=== PATIENT | female | born 1935 | race American Indian/Alaskan Native ===

== ENCOUNTER 2018-01-25 13:32 | Inpatient (IN) | payer MEDICARE, OTHER ==
[2018-01-25] MEDS ORDERED: Metoprolol 1 mg/ml Inj IVP STA (13:58)
[2018-01-25 14:00] LABS: BASO # 0.06 K/mm3 (0.0-2.0); BASO % 0.5 % (0.0-3.0); EOS # 0.3 (0.0-0.7); EOS % 2.2 % (1.5-5.0); GRAN # 1.27 (1.4-6.5); GRAN % 9.6 % (50.0-68.0); HEMOGLOBIN 10.5 g/dL (12.0-16.0); LYMPH # 10.3 (1.2-3.4); LYMPH % 79.2 % (22.0-35.0); MEAN CELL VOLUME 81.8 fl (80.0-105.0); MEAN CORPUSCULAR HEMOGLOBIN 28.1 pg (25.0-35.0); MEAN CORPUSCULAR HGB CONC 34.3 g/dl (31.0-37.0); MONO # 1.1 (0.1-0.6); MONO % 8.5 % (1.0-6.0); PLATELET COUNT 267 10^3/uL (120.0-450.0); RBC 3.74 10^6/uL (3.5-6.1); RED CELL DISTRIBUTION WIDTH 17.7 % (11.5-14.5)
--- NOTE | 2018-01-25 14:27 | RAD ---
Date of service: 01/25/2018 HISTORY: SVT COMPARISON: No prior. FINDINGS: LUNGS: No active pulmonary disease. PLEURA: No significant pleural effusion identified, no pneumothorax apparent. CARDIOVASCULAR: No aortic atherosclerotic calcification present. Normal cardiac size. Aortic tortuosity OSSEOUS STRUCTURES: No significant abnormalities. VISUALIZED UPPER ABDOMEN: Normal. OTHER FINDINGS: None. IMPRESSION: No active disease.
[2018-01-25 14:30] LABS: ATYPICAL LYMPHOCYTE 3 % (0.0-0.0); EOSINOPHIL 2 % (0.0-3.0); LYMPHOCYTE 80 % (22.0-35.0); MONOCYTE 5 % (1.0-6.0); NEUTROPHIL 10 % (50.0-70.0); NUCLEATED RED BLOOD CELL 3 %
[2018-01-25 14:32] LABS: ANISOCYTOSIS 1+; HYPOCHROMIA 2+; PLATELET ESTIMATE NORMAL (NORMAL); POIKILOCYTOSIS 1+; TARGET CELLS 1+
[2018-01-25 14:33] LABS: ALB/GLOB RATIO 0.7 (1.1-1.8); ALBUMIN 2.9 g/dL (3.0-4.8)
--- NOTE | 2018-01-25 14:34 | ED PDOC ---
Arrival/HPI - General Chief Complaint: Palpitations Historian: Patient - History of Present Illness Narrative History of Present Illness (Text): 01/25/18 13:55 82 year old female, with past medical history of hypertension and osteomyelitis, presents to the Emergency department for evaluation of SVT since prior to arrival. Patient informs visiting her PMD this morning, where she was noted to be in acute SVT and was subsequently referred to the ED for medical evaluation. Patient states she has been experiencing chest fluttering and intermittent shortness of breath since past week, but denies any chest pain. Patient reports noncompliance with her blood pressure medications as she was told that the medication will give her adverse effect of a slow heart rate. Patient currently denies any other associated somatic complaints including shortness of breath. Patient denies any fevers, chills, headache, dizziness, chest pain, shortness of breath, cough, abdominal pain, nausea, vomiting, diarrhea, back pain, neck pain, or any other complaints. Upon arrival to the ED, patient initially had a heart rate of 176 bpm, which was lowered to 120 bpm with 6mg IV adenosine. Patient subsequently informed improved symptoms. Time/Duration: Prior to Arrival Symptom Onset: Gradual Symptom Course: Improving Activities at Onset: Light Context: Other (Sent by PMD) Past Medical History - Provider Review Nursing Documentation Reviewed: Yes - Infectious Disease Hx of Infectious Diseases: None - Cardiac Hx Cardiac Disorders: No - Pulmonary Hx Respiratory Disorders: No - Neurological Hx Neurological Disorder: No - HEENT Hx HEENT Disorder: Yes Hx Cataracts: Yes (BILAT.) - Renal Hx Renal Disorder: No - Endocrine/Metabolic Hx Endocrine Disorders: No - Hematological/Oncological Hx Blood Disorders: Yes Hx Blood Transfusions: Yes Hx Blood Transfusion Reaction: No Hx Hepatitis C: Yes (PT. NOT SURE-BELIEVES AFTER BLOOD TRANSFUSION) - Integumentary Hx Dermatological Disorder: Yes Other/Comment: 01/29/16-HX: RASH ON LEFT ARM-"FROM TOO MUCH CITRUS"-PREDNISONE GIVEN-RASH HEALED - Musculoskeletal/Rheumatological Hx Musculoskeletal Disorders: Yes Hx Arthritis: Yes - Gastrointestinal Hx Gastrointestinal Disorders: Yes - Genitourinary/Gynecological Hx Genitourinary Disorders: Yes Hx Hematuria: Yes - Psychiatric Hx Psychophysiologic Disorder: No Hx Substance Use: No - Surgical History Hx Cataract Extraction: Yes (BILAT.) Other/Comment: HX: STOMACH ULCER-SURGERY DONE - Anesthesia Hx Anesthesia: Yes Hx Anesthesia Reactions: No Hx Malignant Hyperthermia: No Family/Social History - Physician Review Nursing Documentation Reviewed: Yes Family/Social History: Unknown Family HX Smoking Status: Never Smoked Hx Alcohol Use: No Hx Substance Use: No Allergies/Home Meds Allergies/Adverse Reactions: Allergies aspirin Allergy (Intermediate, Verified 01/29/16 11:08) DIARRHEA Review of Systems - Physician Review All systems were reviewed & negative as marked: Yes - Review of Systems Constitutional: absent: Fevers Respiratory: absent: SOB, Cough Cardiovascular: Other (SVT). absent: Chest Pain Gastrointestinal: absent: Abdominal Pain, Diarrhea, Nausea, Vomiting Genitourinary Female: absent: Dysuria, Urine Output Changes, Other Musculoskeletal: absent: Back Pain Neurological: absent: Headache, Dizziness Physical Exam Vital Signs Reviewed: Yes Vital Signs Pulse Pulse Resp BP Pulse Ox 01/25/18 14:07 113 H 170/127 H 01/25/18 13:51 170 H 01/25/18 13:43 179 H 29 H 149/113 H 99 Temperature: Afebrile Blood Pressure: Hypertensive Pulse: Tachycardic Respiratory Rate: Tachypneic Appearance: Positive for: Well-Appearing, Non-Toxic, Comfortable Pain Distress: None Mental Status: Positive for: Alert and Oriented X 3 - Systems Exam Head: Present: Atraumatic, Normocephalic Pupils: Present: PERRL Extroacular Muscles: Present: EOMI Conjunctiva: Present: Normal Neck: Present: Normal Range of Motion. No: JVD Respiratory/Chest: Present: Clear to Auscultation, Good Air Exchange. No: Respiratory Distress, Accessory Muscle Use Cardiovascular: Present: Regular Rate and Rhythm, Normal S1, S2. No: Murmurs Abdomen: No: Tenderness, Distention, Peritoneal Signs Back: Present: Normal Inspection Upper Extremity: Present: Normal Inspection. No: Cyanosis, Edema Lower Extremity: Present: Normal Inspection. No: Edema Neurological: Present: GCS=15, CN II-XII Intact, Speech Normal Skin: Present: Warm, Dry, Normal Color. No: Rashes Psychiatric: Present: Alert, Oriented x 3, Normal Insight, Normal Concentration Medical Decision Making ED Course and Treatment: 01/25/18 13:55 Impression: 82 year old female presents to the Emergency department for evaluation of SVT. Differential Diagnosis included but are not limited to: SVT Plan: -- EKG -- Labs -- Chest X-ray -- Adenosine -- Metoprolol -- Urinalysis -- Reassess and disposition -- Admit to Telemetry Prior Visits: Notes and results from previous visits were reviewed. Progress Notes: 01/25/18 13:55 EKG: Ordered, reviewed, and independently interpreted the EKG, shows SVT at 176bpm. 01/25/18 15:01 Upon reassessment, patient informs improved symptoms with heart rate of 84bpm, NSR. Will contact Dr. Daugherty for patient admission. 01/25/18 15:[address] Daugherty, who is aware and agrees with ED management plan, accepts patient under his service. Requests Dr. Tyler on consult for cardiology. 01/25/18 15:08 Chest X-ray reviewed by radiologist, shows no active disease. 01/25/18 15:[address] Tyler, who is aware and will evaluate patient at bedside. - Lab Interpretations Lab Results: 01/25/18 13:44 Lab Results 01/25/18 13:44: WBC 13.0 H, RBC 3.74, Hgb 10.5 L, Hct 30.6 L, MCV 81.8, MCH 28.1, MCHC 34.3, RDW 17.7 H, Plt Count 267, Gran % 9.6 L, Lymph % (Auto) 79.2 H, [place] % (Auto) 8.5 H, Eos % (Auto) 2.2, Baso % (Auto) 0.5, Gran # 1.27 L, Lymph # (Auto) 10.3 H, [place] # (Auto) 1.1 H, Eos # (Auto) 0.3, Baso # (Auto) 0.06, Neutro phils % (Manual) 10 L, Lymphocytes % (Manual) 80 H, Atypical Lymphs % 3 H, Monocytes % (Manual) 5, Eosinophils % (Manual) 2, Nucleated RBC % 3, Platelet Evaluation Normal, Hypochromasia 2+, Poikilocytosis (manual 1+, Anisocytosis (manual) 1+, Target Cells 1+ - RAD Interpretation Radiology Orders: 01/25/18 13:55 CHEST PORTABLE [RAD] Stat Circular Head Saw Operator: Radiologist - Medication Orders Current Medication Orders: Discontinued Medications Adenosine (Adenosine 6 Mg/2 Ml Inj) 6 mg IVP STAT STA Stop: 01/25/18 13:58 Last Admin: 01/25/18 13:50 Dose: 6 mg IVP Administration Document 01/25/18 13:50 [email or web address] (Rec: 01/25/18 14:[id number] Charges for Administration # of IVP Administrations 1 Metoprolol Tartrate (Lopressor) 5 mg IVP STAT STA Stop: 01/25/18 13:59 Last Admin: 01/25/18 14:07 Dose: 5 mg IVP Administration Document 01/25/18 14:07 CAST (Rec: 01/25/18 14:[id number] Charges for Administration # of IVP Administrations 1 APR Pulse and Blood Pressure Document 01/25/18 14:07 [facility] (Rec: 01/25/18 14:[id number] Pulse Pulse Rate (60-90 beats/min) 113 Blood Pressure Blood Pressure (100/60-150/90 mm Hg) 170/127 - Scribe Statement The provider has reviewed the documentation as recorded by the Scribe Chris Diez. All medical record entries made by the Scribe were at my direction and personally dictated by me. I have reviewed the chart and agree that the record accurately reflects my personal performance of the history, physical exam, medical decision making, and the department course for this patient. I have also personally directed, reviewed, and agree with the discharge instructions and disposition. Disposition/Present on Arrival - Present on Arrival Any Indicators Present on Arrival: Yes History of DVT/PE: No History of Uncontrolled Diabetes: No Urinary Catheter: No History of Decub. Ulcer: No History Surgical Site Infection Following: None - Disposition Have Diagnosis and Disposition been Completed?: Yes Diagnosis: SVT (supraventricular tachycardia), Hypertension Disposition: HOSPITALIZED Disposition Time: 15:06 Patient Plan: Telemetry Condition: GOOD
[2018-01-25 14:45] LABS: TROPONIN I 0.02 ng/mL
[2018-01-25 14:59] LABS: URINE BILIRUBIN NEGATIVE (NEGATIVE); URINE BLOOD NEGATIVE (NEGATIVE); URINE GLUCOSE (UA) NEGATIVE (NEGATIVE); URINE LEUKOCYTE ESTERASE NEGATIVE Leu/uL (NEGATIVE); URINE PROTEIN NEGATIVE mg/dL (<30 mg/dL); URINE UROBILINOGEN 0.2 E.U./dL (<1 E.U./dL)
[2018-01-25 15:00] LABS: URINE APPEARANCE CLEAR (CLEAR); URINE COLOR YELLOW (YELLOW)
--- NOTE | 2018-01-25 18:40 | CARD ---
APPROVED REPORT Date of service: 01/25/2018 EKG Measurement Heart [id number] OR [id number] [id number] <Conclusion> Sinus tachycardia Left axis deviation Low voltage QRS Possible Anterolateral infarct, age undetermined Abnormal ECG
--- NOTE | 2018-01-25 18:41 | CARD ---
APPROVED REPORT Date of service: 01/25/2018 EKG Measurement Heart [id number] <Conclusion> Supraventricular tachycardia Low voltage QRS Cannot rule out Anterior infarct, age undetermined Abnormal ECG
--- NOTE | 2018-01-25 20:09 | HP ---
DATE OF EXAM: 01/25/2018 HISTORY OF PRESENT ILLNESS: The patient is currently in room 277, bed 1. The patient is an 82-year-old white female who has a past medical history of osteomyelitis of the spine and hypertension. She was on a beta-carol. She was told that it may slow her heart rate down and abruptly discontinued. She presents to the office complaining of some shortness of breath and palpitations. In the office, the patient was found to be an SVT at approximately 160 beats per minute. She denied any chest pain, any shortness of breath, chills, fever or cough. ALLERGIES: TO ASPIRIN. IT PRODUCES DIARRHEA. PAST MEDICAL HISTORY: As mentioned above. FAMILY HISTORY: Noncontributory. SOCIAL HISTORY: The patient never smoked and no history of substance abuse. REVIEW OF SYSTEMS: Essentially unremarkable. PHYSICAL EXAMINATION VITAL SIGNS: On admission, pulse rate of 170 regular. Currently, the patient has a pulse rate of 81, blood pressure 151/96, respiratory rate of 14, O2 saturation of 99% on room air. HEENT: PERRLA. EOMI. There is no icterus present. NECK: Supple with a full range of motion. No adenopathy or bruits are appreciated. CARDIOPULMONARY: Shows a regular rate and rhythm. LUNGS: Clear to auscultation and percussion bilaterally. ABDOMEN: Soft. It is nontender. Bowel sounds are normoactive. EXTREMITIES: Show no deformities or edema. NEUROLOGICAL: There are no focal motor deficits. LABORATORY DATA: Lab value show a WBC of 13.0, hemoglobin and hematocrit of 10.5 and 30.6. There is 79.2% lymphocytes. Chemistry is normal with the exception of a chloride of 115 and creatinine of 1.3. AST of 47, albumin of 2.9. Urinalysis is normal. IMPRESSION: At this time: 1. Supraventricular tachycardia. 2. Hypertension. PLAN: The patient was started on diltiazem hydrochloride, Cardizem. We will continue current medication and awaiting a consultation by . Moris Daugherty MD
--- NOTE | 2018-01-25 20:48 | CON ---
DATE: 01/25/2018 CARDIOLOGY CONSULTATION HISTORY: The patient is an 82-year-old woman, who presents with palpitations and was found to have an SVT on EKG. The patient has had a history of high blood pressure as well as SVT in the past. She stopped taking her beta-blockers for questionable reasons. She denies diabetes mellitus. No previous cardiac history. During her SVT, the patient suffered palpitations. She denies angina, denies shortness of breath. SOCIAL HISTORY: The patient does not smoke. REVIEW OF SYSTEMS: Fourteen-point review of systems was reviewed in detail. No additional cardiac symptoms are noted other than the fact that when her atenolol was increased to 50 in the past (she complained of wooziness). PHYSICAL EXAMINATION: VITAL SIGNS: Blood pressure is 151/96, heart rate is in the 80s. NECK: Negative JVD. LUNGS: Without rales. CARDIOVASCULAR: Heart revealed S1, S2. EXTREMITIES: Without edema. EKG shows SVT with nonspecific ST-T changes. LABORATORY DATA: BUN and creatinine are 19 and 1.3, potassium is 4.2. Troponin is negative. Hemoglobin is 10.5. IMPRESSION: 1. Supraventricular tachycardia. 2. Palpitations. 3. Hypertension. 4. Anemia. 5. Intolerant to higher doses of beta blockers. PLAN: Given these findings, we will change her atenolol to Cardizem 60 t.i.d. for control of her SVT and for better blood pressure control. We will monitor on telemetry for 24 hours. Tommie Tyler MD
--- NOTE | 2018-01-26 10:01 | PN ---
DATE: 01/26/2018 SUBJECTIVE: The patient remains with sinus tachycardia at approximately 100. PHYSICAL EXAMINATION: VITAL SIGNS: On physical exam, blood pressure is 163/97. NECK: Negative JVD. LUNGS: Without rales. HEART: S1, S2. EXTREMITIES: Without edema. LABORATORY DATA: Hemoglobin is 10.5, BUN and creatinine unremarkable. IMPRESSION: 1. Status post supraventricular tachycardia. 2. Hypertension. 3. Sinus tachycardia, which may be a reaction to stopping her beta-blockers. 4. Anemia. Given these findings, we will add atenolol to her Cardizem. We will check her thyroid functions. Tommie Tyler MD
[2018-01-26 10:38] LABS: T4 9.9 ug/dL (5.5-11.0)
[2018-01-26 10:41] LABS: ALB/GLOB RATIO 0.7 (1.1-1.8); ALBUMIN 2.9 g/dL (3.0-4.8); ALT/SGPT 29 U/L (7-56); AST/SGOT 47 U/L (14-36); BLOOD UREA NITROGEN 15 mg/dL (7-21); CALCIUM 9.1 mg/dL (8.4-10.5); GFR NON-AFRICAN AMERICAN 53
[2018-01-26 10:51] LABS: BASO # 0.04 K/mm3 (0.0-2.0); BASO % 0.6 % (0.0-3.0); EOS # 0.3 (0.0-0.7); EOS % 4.4 % (1.5-5.0); GRAN # 1.03 (1.4-6.5); GRAN % 15.1 % (50.0-68.0); HEMOGLOBIN 9.7 g/dL (12.0-16.0); LYMPH # 4.7 (1.2-3.4); LYMPH % 68.9 % (22.0-35.0); MEAN CELL VOLUME 82.5 fl (80.0-105.0); MEAN CORPUSCULAR HEMOGLOBIN 27.8 pg (25.0-35.0); MEAN CORPUSCULAR HGB CONC 33.7 g/dl (31.0-37.0); MEAN PLATELET VOLUME 11.6 fl (7.0-11.0); MONO # 0.8 (0.1-0.6); RBC 3.49 10^6/uL (3.5-6.1); WHITE BLOOD COUNT 6.8 10^3/uL (4.5-11.0)
--- NOTE | 2018-01-26 13:52 | PN ---
DATE: 01/26/2018 LOCATION: The patient is in room 277, bed 1. SUBJECTIVE: She has no complaints and there have been no incidents overnight. PHYSICAL EXAMINATION: VITAL SIGNS: Pulse rate of 104, blood pressure 154/111, respiratory rate of 20 with an O2 sat of 97% on room air. HEENT: PERRLA. EOMI. There is no icterus present. NECK: Supple with full range of motion. No bruits appreciated. LUNGS: Clear to auscultation and percussion bilaterally. HEART: With a regular rate and rhythm at a rate of 104 per minute. ABDOMEN: Benign. NEUROLOGICAL: There are no focal motor deficits. LABORATORY DATA: Lab values for today are pending. DIAGNOSES: 1. Supraventricular tachycardia. 2. Hypertension. PLAN: The patient is now in normal sinus rhythm. We will add Toprol to slow the heart rate down as well as bring the blood pressure down. Continue current regimen. Moris Daugherty MD
[2018-01-27 07:54] LABS: TROPONIN I 0.04 ng/mL
[2018-01-27 10:09] LABS: ALB/GLOB RATIO 0.7 (1.1-1.8); ALBUMIN 3.3 g/dL (3.0-4.8); CALCIUM 9.2 mg/dL (8.4-10.5)
[2018-01-27 10:16] LABS: HEMOGLOBIN 10.9 g/dL (12.0-16.0); RBC 3.87 10^6/uL (3.5-6.1); WHITE BLOOD COUNT 10.1 10^3/uL (4.5-11.0)
[2018-01-27 10:21] LABS: MEAN CELL VOLUME 80.4 fl (80.0-105.0); MEAN CORPUSCULAR HEMOGLOBIN 28.2 pg (25.0-35.0)
[2018-01-27 10:22] LABS: BASO # 0.05 K/mm3 (0.0-2.0); BASO % 0.5 % (0.0-3.0); EOS # 0.4 (0.0-0.7); EOS % 4.2 % (1.5-5.0); GRAN # 1.28 (1.4-6.5); GRAN % 12.7 % (50.0-68.0); LYMPH # 7.4 (1.2-3.4); LYMPH % 73.8 % (22.0-35.0); MEAN PLATELET VOLUME 13.8 fl (7.0-11.0); MONO # 0.9 (0.1-0.6); MONO % 8.8 % (1.0-6.0); RED CELL DISTRIBUTION WIDTH 18.1 % (11.5-14.5)
--- NOTE | 2018-01-27 12:37 | PN ---
DATE: 01/27/2018 REASON FOR DICTATION: Covering Dr. Tommie Tyler. REASON FOR CONSULTATION: Sinus tachycardia SVT. SUBJECTIVE: The patient denies any chest pain, shortness of breath, any palpitation. PHYSICAL EXAMINATION: GENERAL: The patient is not in apparent distress on examination. VITAL SIGNS: Temperature afebrile, heart rate 71, blood pressure 147/87. HEENT: PERRLA. Extraocular muscles intact. NECK: Supple. No carotid bruits or thyromegaly. CHEST: Clear to auscultation. HEART: S1 and S2 regular. ABDOMEN: Soft. EXTREMITIES: Clubbing and cyanosis negative. LABORATORY DATA: Telemetry shows normal sinus rhythm. The patient complained that after getting atenolol and Cardizem went into junctional bradycardia. Awaiting for EKG for this morning. IMPRESSION: This is an 82-year-old female with past medical history significant for hypertension, admitted with supraventricular tachycardia, history of anemia, started by Dr. Tyler on Cardizem and atenolol last night, went into junctional bradycardia. RECOMMENDATION: We will discontinue atenolol, continue Cardizem 60 mg p.o. t.i.d., and we will leave the patient with the first dose if she remains stable and possibly discharge home, follow with Dr. Tyler. We will get EKG this morning. This morning lab shows hemoglobin 9.7, hematocrit 28.8, platelet count 152. Chemistries show sodium 140, potassium 4.6, chloride 114, carbon dioxide 24, anion gap of ____, BUN 15, creatinine 1. Troponin remains negative. TSH 6.83. We will repeat TSH in four weeks and if needed consider supplementing thyroid. We will transfer care to Dr. Tyler as outpatient. Rio Brown MD
--- NOTE | 2018-01-27 17:24 | CARD ---
APPROVED REPORT Date of service: 01/27/2018 EKG Measurement Heart [id number] 190P15 [id number] <Conclusion> Normal sinus rhythm Left axis deviation Poor R wave progression Abnormal ECG
--- NOTE | 2018-01-27 17:39 | CARD ---
APPROVED REPORT Date of service: 01/26/2018 EKG Measurement Heart [id number] 184P15 [id number] <Conclusion> Marked sinus bradycardia Left axis deviation Poor R wave progression Nonspecific T wave changes Abnormal ECG
--- NOTE | 2018-01-27 19:16 | PN ---
DATE: 01/27/2018 LOCATION: The patient is in room 277, bed 1. SUBJECTIVE: This is an 82-year-old black female, who was sent to the emergency room from the office due to a SVT of 170 beats per minute. Has no complaints. Yesterday evening, her heart rate dropped and some kind of a block into the 50s and 40s. Her beta blockade was stopped at that time. PHYSICAL EXAMINATION VITAL SIGNS: Her temperature of 98.2, pulse rate of 78, blood pressure 138/86, respiratory rate of 16 and on room air. HEENT: Negative. NECK: Supple with full range of motion. No bruits are appreciated. LUNGS: Clear bilaterally. HEART: With a regular rate and rhythm. ABDOMEN: Soft and nontender. Bowel sounds are normoactive. EXTREMITIES: No deformities or edema. NEUROLOGICAL: There are no focal motor deficits. LABORATORY DATA: CBC shows a WBC of 10.1, hemoglobin and hematocrit of 10.9 and 31.1, this is up from 9.7 and 28.8. Chemistry shows a potassium of 5.3, which is probably hemolyzed since her two previous potassiums were normal. Creatinine of 1.4 and the BUN of 17. IMPRESSION: At this time is supraventricular tachycardia. The patient will be monitored throughout the day. The beta carol has been terminated and if her heart rate maintains normal, she will be discharged in the morning. Moris Daugherty MD
[2018-01-28 00:05] VITALS: RESP 20
[2018-01-28 08:15] VITALS: O2SAT 98
[2018-01-28 10:39] LABS: BASO # 0.03 K/mm3 (0.0-2.0); BASO % 0.4 % (0.0-3.0); EOS # 0.4 (0.0-0.7); EOS % 4.9 % (1.5-5.0); GRAN # 1.28 (1.4-6.5); LYMPH # 5.1 (1.2-3.4); LYMPH % 67.7 % (22.0-35.0); MEAN CELL VOLUME 82.3 fl (80.0-105.0); MEAN PLATELET VOLUME 11.6 fl (7.0-11.0); MONO # 0.8 (0.1-0.6); RBC 3.22 10^6/uL (3.5-6.1); WHITE BLOOD COUNT 7.5 10^3/uL (4.5-11.0)
[2018-01-28 10:58] LABS: ALB/GLOB RATIO 0.7 (1.1-1.8); ALBUMIN 2.6 g/dL (3.0-4.8); CALCIUM 8.6 mg/dL (8.4-10.5)
[2018-01-28] MEDS ORDERED: diltiaZEM 240 mg/24 Hours CD Cap PO SCH (12:00)
[2018-01-28 12:27] VITALS: BP 112/70; PULSE 75
[2018-01-28 12:51] VITALS: TEMP 99.2
--- NOTE | 2018-01-28 15:09 | PN ---
DATE: 01/28/2018 COVERING DOCTOR: Tommie Tyler MD REASON FOR CONSULTATION: Sinus tachycardia, SVT. SUBJECTIVE: The patient denies any chest pain, shortness of breath, any palpitation. She feels a lot better. Yesterday, the patient was started on Cardizem and atenolol. Heart rate discontinued atenolol. The patient is currently on Cardizem. Blood pressure is stable; 120/68 with a heart rate of 64, feels better. PHYSICAL EXAMINATION: VITAL SIGNS: Temperature afebrile, heart rate 64, blood pressure 120/60. HEENT: PERRLA. Extraocular muscles intact. NECK: Supple. No carotid bruits or thyromegaly. CHEST: Clear to auscultation. HEART: S1 and S2 regular. ABDOMEN: Soft. EXTREMITIES: Clubbing and cyanosis negative. LABORATORY DATA: WBC 10.1, hemoglobin 10.9, hematocrit 31.1, platelet count 179. Chemistries show sodium 140, potassium 5.3, chloride 111, carbon dioxide 24, anion gap of 11, BUN 17, creatinine 1.4. Today's lab is pending. IMPRESSION AND PLAN: We will wait for blood workup. When the blood workup is available and the patient is stable, we will possibly discharge the patient. If the patient stays, then we will transfer care tomorrow to Dr. Tommie Tyler. If the patient remains stable, we will discharge. History of hypertension, history of supraventricular tachycardia, stable on Cardizem. As mentioned, atenolol will be discontinued. Yesterday, potassium was 5.3. Today SMA-7 ordered and is pending. We will follow. Thank you for providing us the opportunity in taking care of the patient, Raven Eller. Rio Brown MD
--- NOTE | 2018-01-29 09:14 | DS ---
LOCATION: The patient is in room 277, bed 1. HISTORY OF PRESENT ILLNESS: The patient was admitted from the office when she was seen to be in the supraventricular tachycardia of approximately 170 beats per minute. She is currently lying in bed. She has no complaints and there have been no acute events overnight. PAST MEDICAL HISTORY: Remarkable for hypertension. PHYSICAL EXAMINATION: VITAL SIGNS: Show temperature of 98.6, pulse rate of 64, blood pressure 122/68, respiratory rate of 29 with 98% saturation on room air. HEENT: Negative. NECK: Supple. No JVD or bruits are present. LUNGS: Clear bilaterally. HEART: Regular rate and rhythm. No murmurs, rubs or gallops. ABDOMEN: Benign. NEUROLOGIC: The patient is intact. DISCHARGE DIAGNOSIS: Supraventricular tachycardia. The patient will be discharged on Cardizem CD 240 and will be followed up in the office in one week's duration. Moris Daugherty MD
== END 2018-01-28 13:41 | disposition home or self-care (01) | DRG 310 ==
LOC: ED 13:32 → ERH 15:06 → 2RSO 17:24
PROVIDERS: ADMIT Internal Medicine; ATTEND Internal Medicine
DX: I47.1 Supraventricular tachycardia (principal); I10 Essential (primary) hypertension; D64.9 Anemia, unspecified; Z91.14 Patient's other noncompliance with medication regimen; Z79.899 Other long term (current) drug therapy

== ENCOUNTER 2018-07-02 06:20 | Outpatient (CLI) | payer MEDICARE, OTHER | END 2018-07-02 06:21 | disposition home or self-care (01) | LOC: CARDIO 06:20 ==